=== PATIENT | female | born 2000 | race Two or more races ===

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

== ENCOUNTER 2022-03-10 20:13 | Emergency (ER) | payer OTHER ==
[~2022-03-10] VITALS: Ht 144.8 cm; Wt 68.0 kg
[~2022-03-10 20:13] MED LIST: KETO10TA2 PO
[2022-03-10] MEDS ORDERED: AMOX1TAB5 PO (21:13)
== END 2022-03-11 | disposition home or self-care (01) ==
LOC: EMR PED 20:13 → ER 20:13 → EMR PED 03-11 00:07
DX: S60.151A Contusion of right little finger with damage to nail, initial encounter (principal); X58.XXXA Exposure to other specified factors, initial encounter; Y93.9 Activity, unspecified; Y92.9 Unspecified place or not applicable; Y99.9 Unspecified external cause status

== ENCOUNTER 2022-07-02 07:00 | Emergency (ER) | payer OTHER ==
[~2022-07-02] VITALS: Ht 144.8 cm; Wt 63.5 kg
[~2022-07-02 07:00] MED LIST changes: +AMOX1TAB5 PO
== END 2022-07-02 15:02 | disposition home or self-care (01) ==
LOC: EMR PED 07:00
DX: R10.2 Pelvic and perineal pain (principal)